=== PATIENT | female | born 1970 ===

== ENCOUNTER → 2018-12-15 | Outpatient (CLI) | payer OTHER | LOC: C.SPRAD 13:26 ==

== ENCOUNTER 2019-01-05 12:34 | Outpatient (CLI) | payer SELFPAY | END 2019-01-05 12:35 | disposition home or self-care (01) | LOC: C.SPRAD 12:34 ==

== ENCOUNTER 2019-01-26 08:06 | Outpatient (CLI) | payer SELFPAY | END 2019-01-26 08:07 | disposition home or self-care (01) | LOC: C.LAB 08:06 ==